=== PATIENT | male | born 1955 | race African-American/Black ===

== ENCOUNTER 2019-01-13 08:51 | Outpatient (CLI) | payer MEDICARE ==
[2019-01-13 09:21] LABS: #Eosinphils 0.2 thou/uL (0.0-0.7); #Lymphocytes 2.3 thou/uL (1.20-3.40); #Monocytes 0.9 thou/uL (0.11-0.59); %Basophils 0.6 % (0.0-1.0); %Eosinophils 3.7 % (0.0-10.0); %Lymphocytes 35.4 % (21.0-51.0); %Neutrophils 46.4 % (42.0-75.0); Mean Corpuscular HGB CONC 32.1 g/dL (32.0-36.0); Mean Corpuscular Hemoglobin 32.6 pg (27.0-31.0); Mean Platelet Volume 6.3 fL (7.4-10.4); Platelet Count 260 thou/uL (130-400); RBC Distribution Width 12.4 % (11.5-14.5); Red Blood Cell (RBC) Count 4.61 mill/uL (4.70-6.10); White Blood Cell (WBC) Count 6.5 thou/uL (4.8-10.8)
[2019-01-13 09:42] LABS: Anion Gap 12 mmol/L (10-20); BUN (Urea Nitrogen) 13 mg/dL (8.4-25.7); Calc. Creatinine Clearance 0 mL/min (70-130); Calcium 9.7 mg/dL (7.8-10.44); Carbon Dioxide 26 mmol/L (23-31); Chloride 101 mmol/L (98-107); Estimated GFR-MDRD 78; Glucose 84 mg/dL (80-115); Potassium 3.1 mmol/L (3.5-5.1); Sodium 136 mmol/L (136-145)
--- NOTE | 2019-01-13 17:17 | EKG ---
Test Reason : Blood Pressure : / mmHG Vent. Rate : 053 BPM Atrial Rate : 053 BPM P-R Int : 210 ms QRS Dur : 106 ms QT Int : 448 ms P-R-T Axes : 072 -13 029 degrees QTc Int : 420 ms Sinus bradycardia with 1st degree A-V block Repolarization variant When compared with ECG of 05-DEC-2012 08:57, Nonspecific T wave abnormality now evident in Lateral leads Confirmed by DR. Marisabel PATIÑO ([id number]) on 01/13/2019 5:16:57 PM Referred By: SANDRO Confirmed By:DR. Marisabel PATIÑO
== END 2019-01-13 08:52 | disposition home or self-care (01) ==
LOC: LABBT 08:51
PROVIDERS: ATTEND Specialist
DX: Z01.818 Encounter for other preprocedural examination (principal); K40.90 Unilateral inguinal hernia, without obstruction or gangrene, not specified as recurrent
CPT/HCPCS: 80048; 85025; 93005; 93010

== ENCOUNTER 2019-01-17 09:17 | Day surgery (SDC) | payer MEDICARE ==
[2019-01-13 08:43] VITALS: BMI 27.2
[2019-01-17] MEDS ORDERED: ceFAZolin Sodium (SDC) 2 GM/100 ML BAG ONE ×2 (10:02→10:13)
[2019-01-17] MEDS ORDERED: Ketorolac Tromethamine 30 MG/ML VIAL ONE (10:13)
[2019-01-17] MEDS ORDERED: Bupivacaine/Epinephrine 0.25% 30 ML VIAL ONE (12:24)
[2019-01-17] MEDS ORDERED: Fentanyl 100 MCG/2 ML VIAL ONE ×4 (13:44→17:24)
[2019-01-17] MEDS ORDERED: Ondansetron PF 4 MG/2 ML Vial ONE (16:55)
[2019-01-17] MEDS ORDERED: HYDROmorphone 2 MG/ML VIAL ONE (17:06)
[2019-01-17] MEDS ORDERED: HYDROcodone/Acetaminophen 5/325 mg Tablet ONE (18:08)
--- NOTE | 2019-01-18 02:03 | OP ---
DATE OF PROCEDURE: 01/17/2019 PREOPERATIVE DIAGNOSIS: Left inguinal hernia. POSTOPERATIVE DIAGNOSIS: Left inguinal hernia with additional finding of right inguinal hernia (hernias on both sides were indirect). PROCEDURE PERFORMED: Robotic repair of bilateral inguinal hernias with separate 3D max mesh patches. INDICATIONS: The patient is a 63-year-old black male. He presented with an easily visible and palpable left inguinal hernia. He is taken to the operative room at this time for repair. DESCRIPTION OF OPERATION: Informed consent was obtained and patient was taken to the operating room, where general endotracheal anesthesia was obtained with the patient in supine position. Marroquin catheter was placed, abdomen was prepped with ChloraPrep and draped in sterile fashion. Local anesthetic was infiltrated and supraumbilical 11 mm incision was created through which a Veress needle was passed. The peritoneal cavity and pneumoperitoneum established using carbon dioxide to pressure of 15 mmHg. An 11 mm trocar port was passed through the same incision. Laparoscopic camera was passed through this port. Under direct vision, I placed two additional 8 mm robotic ports at the supraumbilical level, one on either side of midline. The robot was then docked to the 3 ports and the camera and operation was continued from the robotic console. Attention was turned to the bilateral inguinal areas. The patient had a fairly large easily visible indirect left inguinal hernia. On the right side, he had a smaller but obvious right inguinal hernia. I decided to proceed with a bilateral inguinal hernia repair. Attention was turned first to the right side. A transverse peritoneal incision was created several centimeters superior to the hernia defect. Preperitoneal dissection was carried inferiorly. The peritoneum was widely cleared from the pubic tubercle medially, dissected off the cord structures in the center, and the iliopubic tract was dissected laterally. I then obtained a large 3DMax mesh patch and placed this in the preperitoneal space. It was secured in place with 2 interrupted sutures of 2-0 Vicryl, one to the pubic tubercle and one to the anterior abdominal wall lateral to the epigastric vessels. The peritoneum was then closed over the mesh patch with a running suture of 3-0 Stratafix. Attention was turned to the left side. A mirror-image operation was performed. The dissection of the hernia sac was more involved as this was a substantially larger hernia. As mentioned, both hernias were indirect. The same size of mesh was used except on the left side. It was tacked in similar fashion and the wound was closed internally similarly. Blood loss was negligible on either side. The fascia at the supraumbilical port site was closed with 0 Vicryl suture using a GraNee needle. All ports and instruments were removed under direct vision. Pneumoperitoneum was carefully evacuated. A 0.25% Marcaine with epinephrine was infiltrated into each port site. Skin edges approximated with 4-0 Monocryl subcuticular suture. Dermabond was placed externally. There were no complications. The patient tolerated the procedure well and was taken to the recovery room in stable condition. Job ID: [id number]
== END 2019-01-17 18:40 | disposition home or self-care (01) ==
LOC: SDC 09:17
PROVIDERS: ATTEND Specialist
PROC: 0YU64JZ Supplement Left Inguinal Region with Synthetic Substitute, Percutaneous Endoscopic Approach (ICD-10-PCS; principal; 2019-01-17)
DX: K40.20 Bilateral inguinal hernia, without obstruction or gangrene, not specified as recurrent (principal); I10 Essential (primary) hypertension; H40.9 Unspecified glaucoma; F17.200 Nicotine dependence, unspecified, uncomplicated; Z79.899 Other long term (current) drug therapy; Z88.5 Allergy status to narcotic agent; Z88.8 Allergy status to other drugs, medicaments and biological substances
CPT/HCPCS: C1781; J0131; J0690; J1170; J1885; J2405; J3010

== ENCOUNTER 2020-08-02 16:00 | Inpatient (IN) | payer MEDICARE ==
[2020-08-07] MEDS ORDERED: cefOXitin Sodium/Dextrose 2 GM/50 ML BAG ONE (06:15)
[2020-08-07] MEDS ORDERED: XYLOCAINE 2%-EPI 1:100,000 20 ML VIAL ONE (06:38)
[2020-08-07] MEDS ORDERED: Bupivacaine 0.25% HCL 30 ML VIAL ONE (06:38)
[2020-08-07] MEDS ORDERED: Fentanyl 100 MCG/2 ML VIAL ONE ×2 (07:29→10:04)
[2020-08-07] MEDS ORDERED: Dexamethasone 20 MG/5 ML VIAL ONE (08:55)
[2020-08-07] MEDS ORDERED: Bupivacaine HCl 0.5%/Epinephrine 1:200,000/PF 30 ml Vial ONE (08:55)
[2020-08-07] MEDS ORDERED: Rocuronium Bromide 10 MG/ML (10ML VIAL) ONE (08:55)
[2020-08-07] MEDS ORDERED: Glycopyrrolate 0.2 MG/ML 5 ML SYRINGE ONE (08:55)
[2020-08-07] MEDS ORDERED: Ondansetron PF 4 MG/2 ML Vial ONE ×2 (08:55→09:54)
[2020-08-07] MEDS ORDERED: PROPOFOL 200 MG/20 ML VIAL ONE (08:55)
[2020-08-07] MEDS ORDERED: Ketorolac Tromethamine 30 MG/ML VIAL ONE (08:55)
[2020-08-07] MEDS ORDERED: Promethazine HCl 25 MG/ML VIAL IM PRN (09:42)
[2020-08-07] MEDS ORDERED: Promethazine HCl 25 MG/ML VIAL ONE (09:54)
--- NOTE | 2020-08-07 10:26 | OP ---
DATE OF PROCEDURE: 08/07/2020 PREOPERATIVE DIAGNOSIS: Cecal mass. PROCEDURE PERFORMED: Laparoscopic hand-assisted right hemicolectomy. INDICATIONS: A 65-year-old male who on recent colonoscopy was found to have a large villous mass in the cecum, which was too large to be removed. FINDINGS: A 4 cm soft villous mass of the cecum. DESCRIPTION OF PROCEDURE: After informed consent was obtained, the patient was taken to the operating room and given general endotracheal anesthesia. He was placed in supine position. Abdomen was prepped and draped in usual fashion. He had been given TAP blocks in the preop area. A 5-mm incision was performed in the left lower quadrant. Veress needle was inserted. Drop test performed. Pneumoperitoneum was created to a volume of 2 L of carbon dioxide. Utilizing a bladeless 5-mm trocar and 0-degree laparoscopic, direct visual entry into the abdominal cavity was performed. Pneumoperitoneum was created to a pressure of 15 mmHg. Then, two 5 mm ports were placed in right lower quadrant and left upper quadrant. The cecum was found. The appendix and white line of Toldt were incised with the LigaSure up to the hepatic flexure. I then was able to mobilize the terminal ileum as well as the cecum and hepatic flexure. The mass was not visible. There was no tattooing seen, so I wound up putting a hand assisted port in and I could feel the mass so to be sure that we were getting it all out. Then, the transverse colon was mobilized partially and the specimen was brought out through the hand assist port. The terminal ileum was divided utilizing a MORRIS. The transverse colon was divided proximal to the middle colic vessels with a MORRIS, and the mesentery was divided utilizing the ligature, but the right colic vessels were ligated with a 2-0 Vicryl stick tie. The specimen was set aside and a pro peristaltic [id number] functional and end-to-end anastomosis was performed. Distal to the staple line on the transverse colon, a colotomy was created with electrocautery. Another wound was made in the ileum approximately 10 cm from the staple line. Then, the MORRIS 75 one limb in each limb of bowel was inserted, fired, and the common enterotomy was closed with a running 3-0 V-Loc PDS. Anastomosis was checked that was patent. Hemostasis was assured. The bowel replaced intra-abdominally. Then, laparoscope once again inserted after pneumoperitoneum was reestablished. There was no evidence of bleeding. The abdomen was irrigated. Irrigation fluid removed. Trocars and retractors were removed. The fat midline fascia was closed with interrupted [id number] of #1 Prolene. Subcu was irrigated, hemostasis was assured. Subcu was reapproximated with interrupted 3-0 Vicryl. Skin was closed with a running subcuticular 4-0 Rapide. The other small ports were closed with interrupted 4-0 Rapide. Dermabond was applied to the small incisions, Steri-Strips to the larger incision. Bandage was applied to the larger incision. The patient tolerated the procedure well. Prior to closure, I did open the specimen and confirmed that the specimen did contain the polyp, which is about a 4 cm villous polyp near the ileocecal valve. Job ID: [id number]
[2020-08-07] MEDS ORDERED: hydrALAZINE 20 MG/ML VIAL ONE (10:37)
[2020-08-07 11:24] VITALS: BMI 26.9
[2020-08-07] MEDS: Morphine 4 MG/ML VIAL SLOW IVP PRN ×4 (12:45→22:47)
[2020-08-07] MEDS: cefOXitin Sodium/Dextrose,Iso 2 GM in Premix Bag 1 BAG IVPB SCH ×2 (14:17→22:43)
[2020-08-07] MEDS: Sodium Chloride 0.9% 1,000 ML IV SCH ×2 (14:18→20:12)
[2020-08-07] MEDS: Ondansetron PF 4 MG/2 ML Vial IVP PRN (15:45)
[2020-08-07] MEDS: Famotidine/PF 20 mg/2ml Vial SLOW IVP SCH (20:06)
[2020-08-07] MEDS: Famotidine 20 MG TAB PO SCH (20:07)
[2020-08-08] MEDS: Morphine 4 MG/ML VIAL SLOW IVP PRN ×6 (02:54→17:41)
[2020-08-08 05:51] LABS: #Lymphocytes 1.9 thou/uL (1.20-3.40); #Monocytes 0.8 thou/uL (0.11-0.59); #Neutrophils 5.6 thou/uL (1.40-6.50); %Basophils 0.2 % (0.0-1.0); %Eosinophils 0.3 % (0.0-10.0); %Lymphocytes 23.2 % (21.0-51.0); %Monocytes 9.7 % (0.0-10.0); %Neutrophils 66.6 % (42.0-75.0); Hemoglobin 13.3 g/dL (14.0-18.0); Mean Corpuscular HGB CONC 34.4 g/dL (32.0-36.0); Mean Platelet Volume 6.6 fL (7.4-10.4); Platelet Count 192 thou/uL (130-400); RBC Distribution Width 12.7 % (11.5-14.5); Red Blood Cell (RBC) Count 3.81 mill/uL (4.70-6.10); White Blood Cell (WBC) Count 8.4 thou/uL (4.8-10.8)
[2020-08-08] MEDS: Sodium Chloride 0.9% 1,000 ML IV SCH ×4 (05:58→20:04)
[2020-08-08 06:00] LABS: Anion Gap 13 mmol/L (10-20); BUN (Urea Nitrogen) 9 mg/dL (8.4-25.7); Calc. Creatinine Clearance 108 mL/min (70-130); Calcium 7.9 mg/dL (7.8-10.44); Carbon Dioxide 23 mmol/L (23-31); Chloride 106 mmol/L (98-107); Glucose 97 mg/dL (80-115); Potassium 3.6 mmol/L (3.5-5.1); Sodium 138 mmol/L (136-145)
[2020-08-08] MEDS: Famotidine 20 MG TAB PO SCH ×2 (08:16→20:04)
[2020-08-08] MEDS: Famotidine/PF 20 mg/2ml Vial SLOW IVP SCH ×2 (08:27→20:08)
[2020-08-08] MEDS ORDERED: FLU VACC QS2020-21(6MOS UP)/PF 60 MCG/0.5 ML SYRINGE IM ONE (09:00)
--- NOTE | 2020-08-08 10:20 | PRG ---
DATE OF SERVICE: 08/08/2020 SUBJECTIVE: The patient is feeling pretty good. Pain is controlled. Very rare nausea. No vomiting. Has not passed any flatus yet. OBJECTIVE: VITAL SIGNS: Temperature 98.3, pulse 64, blood pressure 165/95. GENERAL: He is awake and alert. ABDOMEN: Little bit distended. Rare bowel sounds. Wounds look good. He is putting out good urine. LABORATORY DATA: His white count is 8.4, H and H 13 and 38, platelet count 192. Electrolytes are fine. ASSESSMENT: Doing well. PLAN: Ambulate. We will start advancing diet when he is less distended or passing gases. Job ID: [id number]
[2020-08-08] MEDS: Enoxaparin Sodium 40 MG/0.4 ML SYRINGE SC SCH (10:40)
[2020-08-08] MEDS ORDERED: Ketorolac Tromethamine 30 MG/ML VIAL ONE (17:36)
[2020-08-08] MEDS: hydrALAZINE 20 MG/ML VIAL SLOW IVP PRN (17:45)
[2020-08-09] MEDS: Sodium Chloride 0.9% 1,000 ML IV SCH ×4 (00:19→22:01)
[2020-08-09] MEDS: Ketorolac Tromethamine 30 MG/ML VIAL IVP PRN ×3 (00:19→17:04)
[2020-08-09] MEDS: Ondansetron PF 4 MG/2 ML Vial IVP PRN (06:38)
[2020-08-09] MEDS: Morphine 2 MG/ML VIAL SLOW IVP PRN ×5 (06:38→22:01)
[2020-08-09] MEDS: Famotidine 20 MG TAB PO SCH ×2 (08:34→20:00)
[2020-08-09] MEDS: Enoxaparin Sodium 40 MG/0.4 ML SYRINGE SC SCH (08:34)
[2020-08-09] MEDS: Famotidine/PF 20 mg/2ml Vial SLOW IVP SCH ×2 (08:57→20:01)
--- NOTE | 2020-08-09 09:34 | PRG ---
DATE OF SERVICE: 08/09/2020 SUBJECTIVE: The patient reports he is very hungry. He wants something to eat. He still has not passed any gas yet. His abdomen feels less distended. The pain is well controlled. No nausea or vomiting. OBJECTIVE: VITAL SIGNS: His temperature is 98.4, pulse 69, blood pressure 164/81. GENERAL: He looks good, comfortable. LUNGS: Clear. : He is voiding on his own. ABDOMEN: Soft, a little bit distended. The incisions are healing well without discharge or erythema. ASSESSMENT: Doing well. PLAN: Clear liquid diet. Ambulate. Job ID: [id number]
[2020-08-09] MEDS: Morphine 4 MG/ML VIAL SLOW IVP PRN (18:12)
[2020-08-10] MEDS: Sodium Chloride 0.9% 1,000 ML IV SCH ×3 (00:56→22:05)
[2020-08-10] MEDS: Ketorolac Tromethamine 30 MG/ML VIAL IVP PRN ×3 (00:57→16:47)
[2020-08-10] MEDS: Morphine 2 MG/ML VIAL SLOW IVP PRN ×4 (05:12→20:37)
[2020-08-10] MEDS: Famotidine 20 MG TAB PO SCH ×2 (08:35→20:32)
[2020-08-10] MEDS: Enoxaparin Sodium 40 MG/0.4 ML SYRINGE SC SCH (08:35)
[2020-08-10] MEDS: Famotidine/PF 20 mg/2ml Vial SLOW IVP SCH ×2 (08:39→20:33)
[2020-08-10] MEDS: Morphine 4 MG/ML VIAL SLOW IVP PRN ×2 (11:54→14:34)
[2020-08-11] MEDS: Ketorolac Tromethamine 30 MG/ML VIAL IVP PRN ×3 (00:37→17:08)
[2020-08-11] MEDS: Morphine 2 MG/ML VIAL SLOW IVP PRN ×2 (06:00→12:23)
[2020-08-11] MEDS: Sodium Chloride 0.9% 1,000 ML IV SCH ×3 (06:01→21:04)
[2020-08-11] MEDS: Famotidine/PF 20 mg/2ml Vial SLOW IVP SCH ×2 (09:03→20:34)
[2020-08-11] MEDS: Famotidine 20 MG TAB PO SCH ×2 (09:04→20:34)
[2020-08-11] MEDS: Enoxaparin Sodium 40 MG/0.4 ML SYRINGE SC SCH (09:09)
--- NOTE | 2020-08-11 10:45 | PRG ---
DATE OF SERVICE: 08/11/2020 SUBJECTIVE: The patient has had a couple of bowel movements, some blood-tinged. He is having occasional right-sided abdominal pain. No nausea or vomiting. OBJECTIVE: VITAL SIGNS: Temperature is 98.6, pulse 68, and blood pressure 177/94. GENERAL: He is awake, alert. ABDOMEN: . Incision looks good. There is no evidence of infection. LABORATORY DATA: His white count is 8.4, H and H 13 and 38, and platelet count 192. ASSESSMENT: Doing well. PLAN: Ambulate. Discharge soon. Job ID: [id number]
[2020-08-11] MEDS: hydrALAZINE 20 MG/ML VIAL SLOW IVP PRN (15:37)
[2020-08-11] MEDS ORDERED: Hydrochlorothiazide 25 MG TAB PO SCH (17:00)
[2020-08-11] MEDS: Morphine 4 MG/ML VIAL SLOW IVP PRN ×2 (18:55→21:04)
[2020-08-12] MEDS: Ketorolac Tromethamine 30 MG/ML VIAL IVP PRN ×3 (01:25→17:42)
[2020-08-12] MEDS ORDERED: Morphine 4 MG/ML VIAL ONE ×2 (06:29→08:58)
[2020-08-12] MEDS ORDERED: Famotidine 20 MG TAB ONE (08:57)
[2020-08-12] MEDS ORDERED: Enoxaparin Sodium 40 MG/0.4 ML SYRINGE ONE (08:57)
[2020-08-12] MEDS: Famotidine 20 MG TAB PO SCH ×2 (09:00→20:10)
[2020-08-12] MEDS ORDERED: Hydrochlorothiazide 25 MG TAB ONE (09:00)
[2020-08-12] MEDS: Hydrochlorothiazide 25 MG TAB PO SCH (09:00)
[2020-08-12] MEDS: Enoxaparin Sodium 40 MG/0.4 ML SYRINGE SC SCH (09:00)
[2020-08-12] MEDS ORDERED: Ketorolac Tromethamine 30 MG/ML VIAL ONE (09:04)
[2020-08-12] MEDS ORDERED: Morphine 2 MG/ML VIAL ONE (11:46)
[2020-08-12] MEDS: Morphine 2 MG/ML VIAL SLOW IVP PRN ×3 (11:50→20:10)
[2020-08-12] MEDS: Famotidine/PF 20 mg/2ml Vial SLOW IVP SCH ×2 (14:04→20:11)
--- NOTE | 2020-08-12 14:12 | PRG ---
DATE OF SERVICE: 08/12/2020 SUBJECTIVE: The patient reports he has been a little bloated today, is passing gas, minimal nausea, no vomiting. OBJECTIVE: GENERAL: On exam, he looks good. He is up ambulating. ABDOMEN: Somewhat distended. Incisions healing well. ASSESSMENT: Ileus. PLAN: Continue ambulation. We will keep him on liquids. Job ID: [id number]
[2020-08-12] MEDS ORDERED: Bisacodyl 10 MG SUPP ONE (14:34)
[2020-08-12] MEDS: Sodium Chloride 0.9% 1,000 ML IV SCH ×3 (15:50→22:44)
[2020-08-12] MEDS ORDERED: Bisacodyl 10 MG SUPP PR SCH (16:30)
[2020-08-13] MEDS: Morphine 4 MG/ML VIAL SLOW IVP PRN ×4 (00:17→20:46)
[2020-08-13] MEDS: Ketorolac Tromethamine 30 MG/ML VIAL IVP PRN ×2 (03:00→11:12)
[2020-08-13] MEDS: Famotidine/PF 20 mg/2ml Vial SLOW IVP SCH ×2 (08:24→20:47)
[2020-08-13] MEDS: Hydrochlorothiazide 25 MG TAB PO SCH (08:25)
[2020-08-13] MEDS: Famotidine 20 MG TAB PO SCH ×2 (08:25→20:47)
[2020-08-13] MEDS: Sodium Chloride 0.9% 1,000 ML IV SCH ×2 (08:30→14:12)
[2020-08-13] MEDS: Enoxaparin Sodium 40 MG/0.4 ML SYRINGE SC SCH (12:27)
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
[2020-08-13] MEDS: Morphine 2 MG/ML VIAL SLOW IVP PRN ×2 (17:50→22:20)
[2020-08-14] MEDS: Sodium Chloride 0.9% 1,000 ML IV SCH ×3 (00:52→17:15)
[2020-08-14] MEDS: Morphine 4 MG/ML VIAL SLOW IVP PRN ×3 (00:53→20:34)
[2020-08-14] MEDS: Morphine 2 MG/ML VIAL SLOW IVP PRN ×4 (05:11→17:14)
[2020-08-14] MEDS: Famotidine 20 MG TAB PO SCH ×2 (09:18→20:35)
[2020-08-14] MEDS: Enoxaparin Sodium 40 MG/0.4 ML SYRINGE SC SCH (09:18)
[2020-08-14] MEDS: Famotidine/PF 20 mg/2ml Vial SLOW IVP SCH ×2 (09:18→22:41)
[2020-08-14] MEDS: Hydrochlorothiazide 25 MG TAB PO SCH (09:18)
[2020-08-15] MEDS: Sodium Chloride 0.9% 1,000 ML IV SCH ×3 (00:37→14:52)
[2020-08-15] MEDS: Morphine 4 MG/ML VIAL SLOW IVP PRN ×9 (00:42→23:58)
[2020-08-15] MEDS: Famotidine 20 MG TAB PO SCH ×2 (08:00→21:03)
[2020-08-15] MEDS: Famotidine/PF 20 mg/2ml Vial SLOW IVP SCH ×2 (08:01→21:03)
[2020-08-15] MEDS: Hydrochlorothiazide 25 MG TAB PO SCH (08:01)
[2020-08-15] MEDS: Enoxaparin Sodium 40 MG/0.4 ML SYRINGE SC SCH (11:00)
[2020-08-16] MEDS: Sodium Chloride 0.9% 1,000 ML IV SCH ×2 (02:05→11:47)
[2020-08-16] MEDS: Morphine 4 MG/ML VIAL SLOW IVP PRN ×4 (03:30→11:45)
[2020-08-16] MEDS: Famotidine 20 MG TAB PO SCH (09:08)
[2020-08-16] MEDS: Hydrochlorothiazide 25 MG TAB PO SCH (09:08)
[2020-08-16] MEDS: Famotidine/PF 20 mg/2ml Vial SLOW IVP SCH (09:09)
[2020-08-16 11:29] VITALS: BP 124/77; TEMP 99.3
[2020-08-16] MEDS: Enoxaparin Sodium 40 MG/0.4 ML SYRINGE SC SCH (11:45)
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
== END 2020-08-16 14:01 | disposition home or self-care (01) | DRG 330 ==
LOC: SURG A 08-07 05:50 → SURG B 08-07 11:47 → EDSTATUS 08-07 16:00
PROVIDERS: ADMIT Surgery; ATTEND Surgery
PROC: 0DTF0ZZ Resection of Right Large Intestine, Open Approach (ICD-10-PCS; principal; 2020-08-07)
DX: K63.5 Polyp of colon (principal); K56.7 Ileus, unspecified; Z88.8 Allergy status to other drugs, medicaments and biological substances
CPT/HCPCS: 36415; 36416; 80048; 85025; 88309; J0360; J0694; J1100; J1650; J1885; J2270; J2405; J2550; J2704; J3010; S0020; S0028

== ENCOUNTER 2022-07-28 14:23 | Inpatient (IN) | payer MEDICARE ==
[2022-07-28 16:47] LABS: #Eosinphils 0.2 thou/uL (0.0-0.7); #Lymphocytes 1.8 thou/uL (1.20-3.40); #Monocytes 0.4 thou/uL (0.11-0.59); #Neutrophils 3.1 thou/uL (1.40-6.50); %Basophils 0.8 % (0.0-1.0); %Eosinophils 3.3 % (0.0-10.0); %Lymphocytes 32.3 % (21.0-51.0); %Monocytes 7.4 % (0.0-10.0); %Neutrophils 56.2 % (42.0-75.0); Hemoglobin 13.9 g/dL (14.0-18.0); Mean Corpuscular HGB CONC 34.1 g/dL (32.0-36.0); Mean Corpuscular Hemoglobin 32.5 pg (27.0-31.0); Mean Corpuscular Volume 95.3 fl (78.0-98.0); Mean Platelet Volume 6.6 fL (7.4-10.4); Platelet Count 267 10x3/uL (130-400); RBC Distribution Width 13.3 % (11.5-14.5); Red Blood Cell (RBC) Count 4.26 mill/uL (4.70-6.10); White Blood Cell (WBC) Count 5.5 10x3/uL (4.8-10.8)
[2022-07-28] MEDS ORDERED: Ondansetron PF 4 MG/2 ML Vial ONE (16:50)
[2022-07-28] MEDS ORDERED: Morphine 4 MG/ML VIAL ONE ×2 (16:50→18:14)
[2022-07-28 17:07] LABS: INR-International Normal Ratio 1.1; Prothrombin Time 14.7 sec (12.0-14.7)
[2022-07-28 17:09] LABS: ALT (SGPT) 21 U/L (8-55); AST (SGOT) 20 U/L (5-34); Alkaline Phosphatase 89 U/L (40-110); Anion Gap 16 mmol/L (10-20); BUN (Urea Nitrogen) 9 mg/dL (8.4-25.7); Bilirubin, Total 0.9 mg/dL (0.2-1.2); Calc. Creatinine Clearance 0 mL/min (70-130); Calcium 7.9 mg/dL (7.8-10.44); Carbon Dioxide 27 mmol/L (23-31); Chloride 99 mmol/L (98-107); Estimated GFR 75; Globulin 3.8 g/dL (2.4-3.5); Glucose 92 mg/dL (80-115); Protein, Total 7.8 g/dL (5.8-8.1); Sodium 140 mmol/L (136-145)
[2022-07-28 17:13] LABS: Potassium 2.4 mmol/L (3.5-5.1)
[2022-07-28] MEDS ORDERED: Potassium Chloride 20 MEQ TAB ONE ×2 (17:21→18:41)
[2022-07-28] MEDS ORDERED: Ondansetron PF 4 MG/2 ML Vial IVP PRN (18:57)
[2022-07-28] MEDS ORDERED: Ondansetron ODT 4 MG TAB PO PRN (18:57)
[2022-07-28] MEDS ORDERED: Acetaminophen 325 MG TAB PO PRN (18:57)
[2022-07-28] MEDS ORDERED: HYDROcodone/Acetaminophen 10/325 mg Tablet PO PRN (18:57)
[2022-07-28] MEDS ORDERED: Electrolyte Replacement Protocol 1 EACH FS SCH (19:00)
[2022-07-28] MEDS ORDERED: HYDROcodone/Acetaminophen 5/325 mg Tablet PO PRN (19:02)
[2022-07-28 19:42] LABS: Phosphorus 4.1 mg/dL (2.3-4.7)
[2022-07-28 19:49] LABS: Magnesium Less than 0.6 mg/dL (1.6-2.6)
[2022-07-28 19:55] VITALS: BMI 27.6
[2022-07-28 20:03] LABS: SARS-CoV-2 NAA Rapid Test Not Detected (NotDetected)
[2022-07-28] MEDS ORDERED: Magnesium 2 GM/50 ML(in water) 2 GM in Premix Bag 1 BAG IVPB SCH (20:15)
[2022-07-28] MEDS: Pantoprazole 40 MG VIAL IVP SCH (20:28)
[2022-07-28] MEDS: HYDROcodone/Acetaminophen 5/325 mg Tablet PO PRN (20:30)
[2022-07-28 22:50] LABS: Anion Gap 16 mmol/L (10-20); BUN (Urea Nitrogen) 7 mg/dL (8.4-25.7); Calc. Creatinine Clearance 100 mL/min (70-130); Calcium 7.5 mg/dL (7.8-10.44); Carbon Dioxide 25 mmol/L (23-31); Chloride 102 mmol/L (98-107); Estimated GFR 94; Glucose 112 mg/dL (80-115); Sodium 140 mmol/L (136-145)
[2022-07-28 22:58] LABS: Potassium 2.5 mmol/L (3.5-5.1)
[2022-07-29] MEDS: Potassium Chloride 20 MEQ TAB PO SCH ×2 (00:06→04:06)
[2022-07-29] MEDS: HYDROcodone/Acetaminophen 5/325 mg Tablet PO PRN ×7 (00:19→23:48)
[2022-07-29 02:39] LABS: Magnesium 0.7 mg/dL (1.6-2.6)
[2022-07-29] MEDS: Magnesium 2 GM/50 ML(in water) 2 GM in Premix Bag 1 BAG IVPB SCH ×2 (04:05→05:31)
[2022-07-29] MEDS: Pantoprazole 40 MG VIAL IVP SCH ×2 (08:15→20:03)
[2022-07-29] MEDS ORDERED: Hydrochlorothiazide 25 MG TAB PO SCH (09:00)
[2022-07-29 09:11] LABS: Anion Gap 13 mmol/L (10-20); BUN (Urea Nitrogen) 6 mg/dL (8.4-25.7); Calc. Creatinine Clearance 106 mL/min (70-130); Calcium 7.7 mg/dL (7.8-10.44); Carbon Dioxide 27 mmol/L (23-31); Chloride 102 mmol/L (98-107); Estimated GFR 96; Glucose 90 mg/dL (80-115); Magnesium 2.1 mg/dL (1.6-2.6); Sodium 139 mmol/L (136-145)
[2022-07-29 09:17] LABS: Potassium 2.6 mmol/L (3.5-5.1)
[2022-07-29] MEDS: Potassium Chloride 20 MEQ in Premix Bag 1 BAG IVPB SCH ×2 (09:25→12:39)
[2022-07-29] MEDS ORDERED: Potassium Chloride 20 MEQ TAB PO SCH (10:45)
[2022-07-29] MEDS ORDERED: Magnesium Sulfate In Water 4 GM in Premix Bag 1 BAG IVPB SCH (12:00)
[2022-07-29 12:14] LABS: Magnesium 1.7 mg/dL (1.6-2.6)
[2022-07-29 12:20] LABS: Anion Gap 15 mmol/L (10-20); BUN (Urea Nitrogen) 5 mg/dL (8.4-25.7); Calc. Creatinine Clearance 100 mL/min (70-130); Calcium 7.7 mg/dL (7.8-10.44); Carbon Dioxide 26 mmol/L (23-31); Chloride 101 mmol/L (98-107); Estimated GFR 94; Glucose 106 mg/dL (80-115); Potassium 2.7 mmol/L (3.5-5.1); Sodium 139 mmol/L (136-145)
[2022-07-29] MEDS: NS 0.9% w/ 20 MEQ KCL 1,000 ML/1,000 ML BAG IV SCH ×2 (12:31→21:34)
[2022-07-29 15:11] LABS: Anion Gap 15 mmol/L (10-20); BUN (Urea Nitrogen) 6 mg/dL (8.4-25.7); Calc. Creatinine Clearance 103 mL/min (70-130); Calcium 7.7 mg/dL (7.8-10.44); Carbon Dioxide 26 mmol/L (23-31); Chloride 102 mmol/L (98-107); Estimated GFR 95; Glucose 103 mg/dL (80-115); Potassium 2.9 mmol/L (3.5-5.1); Sodium 140 mmol/L (136-145)
[2022-07-29] MEDS: Cholestyramine/Aspartame 4 gm Packet PO SCH ×2 (21:34→22:26)
[2022-07-29 22:13] LABS: Anion Gap 13 mmol/L (10-20); BUN (Urea Nitrogen) 5 mg/dL (8.4-25.7); Calc. Creatinine Clearance 103 mL/min (70-130); Calcium 7.5 mg/dL (7.8-10.44); Carbon Dioxide 24 mmol/L (23-31); Chloride 103 mmol/L (98-107); Estimated GFR 95; Glucose 101 mg/dL (80-115); Potassium 3.1 mmol/L (3.5-5.1); Sodium 137 mmol/L (136-145)
[2022-07-30] MEDS: HYDROcodone/Acetaminophen 5/325 mg Tablet PO PRN ×5 (04:33→21:23)
[2022-07-30] MEDS ORDERED: Potassium Chloride 20 MEQ TAB PO SCH ×2 (08:00→15:30)
[2022-07-30 08:07] LABS: #Eosinphils 0.1 thou/uL (0.0-0.7); #Lymphocytes 1.6 thou/uL (1.20-3.40); #Monocytes 0.5 thou/uL (0.11-0.59); #Neutrophils 3.7 thou/uL (1.40-6.50); %Basophils 0.2 % (0.0-1.0); %Eosinophils 2.1 % (0.0-10.0); %Lymphocytes 26.9 % (21.0-51.0); %Monocytes 8.4 % (0.0-10.0); %Neutrophils 62.5 % (42.0-75.0); Hemoglobin 12.9 g/dL (14.0-18.0); Mean Corpuscular HGB CONC 34.1 g/dL (32.0-36.0); Mean Corpuscular Volume 96.7 fl (78.0-98.0); Mean Platelet Volume 6.5 fL (7.4-10.4); Platelet Count 292 10x3/uL (130-400); RBC Distribution Width 13.2 % (11.5-14.5); Red Blood Cell (RBC) Count 3.92 mill/uL (4.70-6.10); White Blood Cell (WBC) Count 5.9 10x3/uL (4.8-10.8)
[2022-07-30 08:32] LABS: Anion Gap 15 mmol/L (10-20); BUN (Urea Nitrogen) 4 mg/dL (8.4-25.7); Calc. Creatinine Clearance 111 mL/min (70-130); Calcium 7.9 mg/dL (7.8-10.44); Carbon Dioxide 24 mmol/L (23-31); Chloride 101 mmol/L (98-107); Estimated GFR 97; Glucose 93 mg/dL (80-115); Magnesium 1.2 mg/dL (1.6-2.6); Potassium 2.7 mmol/L (3.5-5.1); Sodium 137 mmol/L (136-145)
[2022-07-30] MEDS: Pantoprazole 40 MG VIAL IVP SCH (08:38)
[2022-07-30] MEDS: NS 0.9% w/ 20 MEQ KCL 1,000 ML/1,000 ML BAG IV SCH ×2 (08:39→20:06)
[2022-07-30] MEDS ORDERED: Magnesium Sulfate In Water 4 GM in Premix Bag 1 BAG IVPB SCH (10:00)
[2022-07-30] MEDS: Cholestyramine/Aspartame 4 gm Packet PO SCH ×2 (10:24→21:23)
[2022-07-30] MEDS: Potassium Chloride 10 MEQ in Premix Bag 1 BAG IVPB SCH ×2 (16:36→21:21)
[2022-07-30 18:39] LABS: Anion Gap 14 mmol/L (10-20); BUN (Urea Nitrogen) 5 mg/dL (8.4-25.7); Calc. Creatinine Clearance 106 mL/min (70-130); Calcium 8.6 mg/dL (7.8-10.44); Carbon Dioxide 25 mmol/L (23-31); Chloride 102 mmol/L (98-107); Estimated GFR 96; Glucose 95 mg/dL (80-115); Magnesium 2.2 mg/dL (1.6-2.6); Phosphorus 1.9 mg/dL (2.3-4.7); Potassium 3.4 mmol/L (3.5-5.1); Sodium 138 mmol/L (136-145)
[2022-07-30] MEDS: PHOS-NAK 1 PKT PACK PO SCH (19:47)
[2022-07-30] MEDS: Famotidine/PF 20 mg/2ml Vial SLOW IVP SCH (20:06)
[2022-07-31] MEDS: PHOS-NAK 1 PKT PACK PO SCH (00:43)
[2022-07-31] MEDS: Potassium Chloride 10 MEQ in Premix Bag 1 BAG IVPB SCH (00:45)
[2022-07-31] MEDS: HYDROcodone/Acetaminophen 5/325 mg Tablet PO PRN ×4 (01:14→13:48)
[2022-07-31] MEDS: NS 0.9% w/ 20 MEQ KCL 1,000 ML/1,000 ML BAG IV SCH ×2 (03:31→09:25)
[2022-07-31 07:35] LABS: Anion Gap 12 mmol/L (10-20); BUN (Urea Nitrogen) 4 mg/dL (8.4-25.7); Calc. Creatinine Clearance 118 mL/min (70-130); Calcium 8.3 mg/dL (7.8-10.44); Carbon Dioxide 24 mmol/L (23-31); Chloride 104 mmol/L (98-107); Estimated GFR 99; Glucose 94 mg/dL (80-115); Potassium 3.4 mmol/L (3.5-5.1); Sodium 137 mmol/L (136-145)
[2022-07-31] MEDS ORDERED: Potassium Chloride 20 MEQ TAB PO SCH (08:15)
[2022-07-31] MEDS: Cholestyramine/Aspartame 4 gm Packet PO SCH (09:23)
[2022-07-31] MEDS: Famotidine/PF 20 mg/2ml Vial SLOW IVP SCH (09:23)
[2022-07-31 10:07] LABS: #Eosinphils 0.1 thou/uL (0.0-0.7); #Lymphocytes 1.7 thou/uL (1.20-3.40); #Monocytes 0.5 thou/uL (0.11-0.59); #Neutrophils 2.9 thou/uL (1.40-6.50); %Basophils 0.6 % (0.0-1.0); %Eosinophils 2.6 % (0.0-10.0); %Lymphocytes 32.1 % (21.0-51.0); %Monocytes 9.1 % (0.0-10.0); %Neutrophils 55.7 % (42.0-75.0); Hemoglobin 12.9 g/dL (14.0-18.0); Mean Corpuscular HGB CONC 33.7 g/dL (32.0-36.0); Mean Corpuscular Hemoglobin 32.8 pg (27.0-31.0); Mean Corpuscular Volume 97.4 fl (78.0-98.0); Mean Platelet Volume 6.3 fL (7.4-10.4); Platelet Count 285 10x3/uL (130-400); RBC Distribution Width 13.3 % (11.5-14.5); Red Blood Cell (RBC) Count 3.92 mill/uL (4.70-6.10); White Blood Cell (WBC) Count 5.1 10x3/uL (4.8-10.8)
[2022-07-31 15:43] VITALS: BP 130/75; TEMP 98.1
== END 2022-07-31 15:44 | disposition home or self-care (01) | DRG 395 ==
LOC: ERS 14:23 → T4-B 18:52 → INTOOBSV 18:52 → OBSVTOIN 07-29 12:23
PROVIDERS: ADMIT Hospitalist; ATTEND Hospitalist
DX: K94.19 Other complications of enterostomy (principal); E87.6 Hypokalemia; Z20.822 Contact with and (suspected) exposure to COVID-19; E83.42 Hypomagnesemia; Y83.3 Surgical operation with formation of external stoma as the cause of abnormal reaction of the patient, or of later complication, without mention of misadventure at the time of the procedure; I10 Essential (primary) hypertension; Z88.8 Allergy status to other drugs, medicaments and biological substances; Z86.010 Personal history of colon polyps; Z90.49 Acquired absence of other specified parts of digestive tract; Z79.899 Other long term (current) drug therapy
CPT/HCPCS: 36415; 80048; 80053; 83735; 84100; 84132; 85025; 85610; 85730; 96375; 96376; 97139; C9113; G0378; J2270; J2405; J3475; J3480; S0028; U0002

== ENCOUNTER 2022-08-03 15:15 | Inpatient (IN) | payer MEDICARE ==
[2022-08-04 12:14] VITALS: BMI 26.8
[2022-08-06] MEDS ORDERED: fentaNYL PF 100 MCG/2 ML SYRINGE ONE (06:44)
[2022-08-06] MEDS ORDERED: Bupivacaine/Epinephrine 0.25% 30 ML VIAL ONE (06:53)
[2022-08-06] MEDS ORDERED: Midazolam HCl 2 mg/2 ml Vial ONE (07:23)
[2022-08-06] MEDS ORDERED: Glycopyrrolate 0.2 MG/ML 5 ML SYRINGE ONE (07:35)
[2022-08-06] MEDS ORDERED: Dexamethasone 20 MG/5 ML VIAL ONE (07:35)
[2022-08-06] MEDS ORDERED: Rocuronium Bromide 10 MG/ML (10ML VIAL) ONE (07:35)
[2022-08-06] MEDS ORDERED: Lidocaine 1% PF 5 ML VIAL ONE (07:35)
[2022-08-06] MEDS ORDERED: PROPOFOL 200 MG/20 ML VIAL ONE (07:35)
[2022-08-06] MEDS ORDERED: Ondansetron PF 4 MG/2 ML Vial ONE (07:35)
[2022-08-06] MEDS ORDERED: NEOSTIGMINE 3 MG/3 ML SYR 3 MG/3 ML SYRINGE ONE (07:35)
[2022-08-06] MEDS ORDERED: Sodium Chloride 0.9% 100 ML ONE (07:48)
[2022-08-06] MEDS ORDERED: CEFAZOLIN 2 GM VIAL ONE (07:48)
[2022-08-06 08:42] LABS: SARS-CoV-2 NAA Rapid Test Not Detected (NotDetected)
[2022-08-06] MEDS ORDERED: Fentanyl 100 MCG/2 ML VIAL ONE ×3 (09:17→10:12)
[2022-08-06] MEDS ORDERED: Promethazine HCl 25 MG/ML VIAL IM PRN ×2 (09:17→09:29)
[2022-08-06] MEDS ORDERED: Ondansetron HCl/PF 4 MG/2 ML Vial IVP PRN (09:17)
[2022-08-06] MEDS ORDERED: Promethazine HCl 25 MG/ML VIAL ONE (09:28)
[2022-08-06] MEDS ORDERED: Morphine 2 MG/ML VIAL SLOW IVP PRN (09:29)
[2022-08-06] MEDS ORDERED: Ondansetron PF 4 MG/2 ML Vial IVP PRN (09:29)
[2022-08-06] MEDS ORDERED: hydrALAZINE 20 MG/ML VIAL SLOW IVP PRN ×2 (09:29→10:50)
[2022-08-06] MEDS ORDERED: Ipratropium/Albuterol 3 ML NEB NEB PRN (09:29)
[2022-08-06] MEDS ORDERED: hydrALAZINE 20 MG/ML VIAL ONE (09:42)
[2022-08-06] MEDS ORDERED: HYDROmorphone 2 MG/ML VIAL ONE (10:21)
[2022-08-06] MEDS ORDERED: HYDROmorphone 2 MG/ML VIAL SLOW IVP PRN (10:52)
[2022-08-06] MEDS ORDERED: Bupivacaine PF 0.5% 30 ML VIAL ONE (11:00)
[2022-08-06] MEDS ORDERED: Ketorolac Tromethamine 30 MG/ML VIAL ONE (11:24)
[2022-08-06] MEDS: Ketorolac Tromethamine 30 MG/ML VIAL IVP SCH ×3 (11:26→22:57)
[2022-08-06] MEDS ORDERED: FLU VACC QS2022-23(65YR UP)/PF 240 MCG/0.7 ML SYRINGE IM ONE (13:00)
[2022-08-06] MEDS: Morphine 4 MG/ML VIAL SLOW IVP PRN ×4 (13:02→22:58)
[2022-08-06] MEDS: Sodium Chloride 0.9% 1,000 ML IV SCH ×3 (14:00→22:59)
[2022-08-06] MEDS: cefOXitin 2 GM in Sodium Chloride 0.9% 100 ML IVPB SCH ×2 (14:58→22:58)
[2022-08-06] MEDS: Famotidine/PF 20 mg/2ml Vial SLOW IVP SCH (20:22)
[2022-08-06] MEDS: Famotidine 20 MG TAB PO SCH (20:23)
[2022-08-07] MEDS: Morphine 4 MG/ML VIAL SLOW IVP PRN ×3 (01:31→07:53)
[2022-08-07] MEDS: Ketorolac Tromethamine 30 MG/ML VIAL IVP SCH ×3 (05:09→17:38)
[2022-08-07 06:06] LABS: #Eosinphils 0.1 thou/uL (0.0-0.7); #Lymphocytes 1.8 thou/uL (1.20-3.40); #Neutrophils 6.5 thou/uL (1.40-6.50); %Basophils 0.1 % (0.0-1.0); %Eosinophils 0.6 % (0.0-10.0); %Lymphocytes 19.1 % (21.0-51.0); %Monocytes 10.5 % (0.0-10.0); %Neutrophils 69.6 % (42.0-75.0); Hemoglobin 11.5 g/dL (14.0-18.0); Mean Corpuscular HGB CONC 33.9 g/dL (32.0-36.0); Mean Corpuscular Hemoglobin 33.5 pg (27.0-31.0); Mean Corpuscular Volume 98.7 fl (78.0-98.0); Mean Platelet Volume 6.3 fL (7.4-10.4); Platelet Count 400 10x3/uL (130-400); RBC Distribution Width 13.5 % (11.5-14.5); Red Blood Cell (RBC) Count 3.42 mill/uL (4.70-6.10); White Blood Cell (WBC) Count 9.4 10x3/uL (4.8-10.8)
[2022-08-07 06:23] LABS: Anion Gap 15 mmol/L (10-20); BUN (Urea Nitrogen) 10 mg/dL (8.4-25.7); Calc. Creatinine Clearance 112 mL/min (70-130); Calcium 7.9 mg/dL (7.8-10.44); Carbon Dioxide 20 mmol/L (23-31); Chloride 103 mmol/L (98-107); Estimated GFR 99; Glucose 83 mg/dL (80-115); Potassium 4.3 mmol/L (3.5-5.1); Sodium 134 mmol/L (136-145)
[2022-08-07] MEDS: Famotidine/PF 20 mg/2ml Vial SLOW IVP SCH ×2 (07:53→21:10)
[2022-08-07] MEDS: Famotidine 20 MG TAB PO SCH ×2 (08:47→21:10)
[2022-08-07] MEDS: Sodium Chloride 0.9% 1,000 ML IV SCH ×2 (09:00→17:42)
[2022-08-07] MEDS ORDERED: HYDROcodone/Acetaminophen 7.5/325 mg Tablet PO PRN (09:30)
[2022-08-07] MEDS: HYDROcodone/Acetaminophen 7.5/325 mg Tablet PO PRN ×3 (11:34→21:09)
[2022-08-08] MEDS: Ketorolac Tromethamine 30 MG/ML VIAL IVP SCH ×4 (00:22→18:52)
[2022-08-08] MEDS: HYDROcodone/Acetaminophen 7.5/325 mg Tablet PO PRN ×3 (04:23→20:51)
[2022-08-08] MEDS: Sodium Chloride 0.9% 1,000 ML IV SCH ×2 (04:24→08:46)
[2022-08-08] MEDS: Famotidine 20 MG TAB PO SCH ×2 (08:46→20:52)
[2022-08-08] MEDS: Hydrochlorothiazide 25 MG TAB PO SCH (08:46)
[2022-08-08] MEDS: Senokot S 8.6-50 MG TAB PO SCH (21:52)
[2022-08-09] MEDS: Ketorolac Tromethamine 30 MG/ML VIAL IVP SCH ×3 (00:12→13:29)
[2022-08-09] MEDS: HYDROcodone/Acetaminophen 7.5/325 mg Tablet PO PRN (04:30)
[2022-08-09 05:34] LABS: Hemoglobin 10.9 g/dL (14.0-18.0); Mean Corpuscular HGB CONC 29.2 g/dL (32.0-36.0); Mean Corpuscular Hemoglobin 28.7 pg (27.0-31.0); Mean Corpuscular Volume 98.2 fl (78.0-98.0); Mean Platelet Volume 6.2 fL (7.4-10.4); Platelet Count 421 10x3/uL (130-400); RBC Distribution Width 13.6 % (11.5-14.5); White Blood Cell (WBC) Count 5.1 10x3/uL (4.8-10.8)
[2022-08-09 05:57] LABS: Anion Gap 15 mmol/L (10-20); BUN (Urea Nitrogen) 5 mg/dL (8.4-25.7); Calc. Creatinine Clearance 123 mL/min (70-130); Calcium 8.2 mg/dL (7.8-10.44); Carbon Dioxide 23 mmol/L (23-31); Chloride 102 mmol/L (98-107); Estimated GFR 101; Glucose 90 mg/dL (80-115); Phosphorus 3.3 mg/dL (2.3-4.7); Potassium 2.7 mmol/L (3.5-5.1); Sodium 137 mmol/L (136-145)
[2022-08-09 06:01] LABS: Magnesium 0.9 mg/dL (1.6-2.6)
[2022-08-09 06:30] LABS: #Eosinphils 0.3 thou/uL (0.0-0.7); #Lymphocytes 1.7 thou/uL (1.20-3.40); #Monocytes 0.7 thou/uL (0.11-0.59); #Neutrophils 2.5 thou/uL (1.40-6.50); %Basophils 0.4 % (0.0-1.0); %Eosinophils 5.7 % (0.0-10.0); %Lymphocytes 33.3 % (21.0-51.0); %Monocytes 12.7 % (0.0-10.0); Hypochromia SLIGHT = 6-15 cells (100X) (0-5/hpf); MDiff Complete? YES; Platelet Morphology Comment Appears Increased; Polychromasia SLIGHT = 2-3 cells (100X) (0-2/hpf)
[2022-08-09] MEDS ORDERED: Magnesium Sulfate In Water 4 GM in Premix Bag 1 BAG IVPB SCH (06:30)
[2022-08-09 07:31] VITALS: TEMP 98
[2022-08-09] MEDS ORDERED: Potassium Phosphate 30 MMOL in Sodium Chloride 0.9% 250 ML 250 ML IVPB SCH (08:00)
[2022-08-09] MEDS ORDERED: Acetaminophen/Codeine 30-300mg Tablet PO PRN ×2 (08:37)
[2022-08-09] MEDS: Famotidine 20 MG TAB PO SCH (08:48)
[2022-08-09] MEDS: Senokot S 8.6-50 MG TAB PO SCH (08:50)
[2022-08-09] MEDS: Hydrochlorothiazide 25 MG TAB PO SCH (08:50)
[2022-08-09] MEDS ORDERED: Magnesium Oxide 400 MG TAB PO SCH (09:00)
[2022-08-09] MEDS ORDERED: Polyethylene Glycol 3350 17 GM Packet PO SCH (09:00)
[2022-08-09 11:08] VITALS: BP 127/74
== END 2022-08-09 15:24 | disposition home or self-care (01) | DRG 330 ==
LOC: SURG A 08-06 05:53 → EDSTATUS 08-06 15:15
PROVIDERS: ADMIT Surgery; ATTEND Surgery
PROC: 0DBB0ZZ Excision of Ileum, Open Approach (ICD-10-PCS; principal; 2022-08-06)
DX: K94.19 Other complications of enterostomy (principal); K55.8 Other vascular disorders of intestine; K56.7 Ileus, unspecified; K56.1 Intussusception; E83.42 Hypomagnesemia; B19.20 Unspecified viral hepatitis C without hepatic coma; F17.210 Nicotine dependence, cigarettes, uncomplicated; I10 Essential (primary) hypertension; Z98.890 Other specified postprocedural states; Z79.899 Other long term (current) drug therapy; Z80.42 Family history of malignant neoplasm of prostate; Z90.49 Acquired absence of other specified parts of digestive tract; Z88.8 Allergy status to other drugs, medicaments and biological substances; Z20.822 Contact with and (suspected) exposure to COVID-19; H40.9 Unspecified glaucoma; Z82.49 Family history of ischemic heart disease and other diseases of the circulatory system
CPT/HCPCS: 36415; 80048; 83735; 84100; 85025; 88307; A4649; J0360; J0694; J1100; J1170; J1650; J1885; J2250; J2270; J2272; J2405; J2550; J2704; J3010; J3475; J3490; J7050; S0020; S0028; U0002

== ENCOUNTER 2022-09-29 12:34 | Outpatient (CLI) | payer MEDICARE | END 2022-09-29 12:35 | disposition home or self-care (01) | LOC: BICCT 12:34 | PROVIDERS: ATTEND Surgery | DX: R14.0 Abdominal distension (gaseous) (principal); R10.9 Unspecified abdominal pain; N28.1 Cyst of kidney, acquired; K76.0 Fatty (change of) liver, not elsewhere classified; K43.9 Ventral hernia without obstruction or gangrene | CPT/HCPCS: 74177; 82565 ==

== ENCOUNTER 2024-04-22 16:06 | Inpatient (IN) | payer MEDICARE ==
[2024-04-22] MEDS ORDERED: Sodium Chloride 0.9% 1,000 ML IV SCH (16:30)
[2024-04-22] MEDS ORDERED: Ipratropium/Albuterol 3 ML NEB NEB PRN (16:30)
[2024-04-22] MEDS ORDERED: Ondansetron PF 4 MG/2 ML Vial IVP PRN (16:30)
[2024-04-22] MEDS: Acetaminophen 325 MG TAB PO SCH (17:47)
[2024-04-22] MEDS: Lactated Ringer's 1,000 ML IV SCH (17:47)
[2024-04-22] MEDS: Potassium Chloride 20 MEQ in Premix 1 BAG IVPB SCH (17:48)
[2024-04-22 18:53] LABS: #Basophils Less than 0.03 10x3/uL (0.0-0.2); %Basophils 0.2 % (0.0-1.0); %Eosinophils 0.3 % (0.0-10.0); %Lymphocytes 17.7 % (21.0-51.0); %Monocytes 6.7 % (0.0-10.0); %Neutrophils 74.9 % (42.0-75.0); Hemoglobin 12.8 g/dL (14.0-18.0); Mean Corpuscular HGB CONC 34.6 g/dL (32.0-36.0); Mean Corpuscular Hemoglobin 34.4 pg (27.0-31.0); Mean Corpuscular Volume 99.5 fL (78.0-98.0); Mean Platelet Volume 9.2 fL (7.4-10.4); Platelet Count 241 10x3/uL (130-400); RBC Distribution Width 13.1 % (11.5-14.5); Red Blood Cell (RBC) Count 3.72 mill/uL (4.70-6.10)
[2024-04-22 19:07] LABS: INR-International Normal Ratio 1.3; PTT 39.3 sec (22.9-36.1); Prothrombin Time 16.7 sec (12.0-14.7)
[2024-04-22 19:12] LABS: Anion Gap 15 mmol/L (10-20); BUN (Urea Nitrogen) 8 mg/dL (8.4-25.7); Calc. Creatinine Clearance 0 mL/min (70-130); Calcium 7.1 mg/dL (7.8-10.44); Carbon Dioxide 20 mmol/L (23-31); Chloride 105 mmol/L (98-107); Estimated GFR 86; Glucose 89 mg/dL (80-115); Magnesium 0.6 mg/dL (1.6-2.6); Phosphorus 2.9 mg/dL (2.3-4.7); Potassium 3.1 mmol/L (3.5-5.1); Sodium 137 mmol/L (136-145)
[2024-04-22 19:23] VITALS: BMI 28.5
[2024-04-22] MEDS ORDERED: Piperacillin/Tazobactam 3.375 GM in Sodium Chloride 0.9% 100 ML IVPB SCH (19:30)
[2024-04-22] MEDS ORDERED: Electrolyte Replacement Protocol 1 EACH FS SCH (19:45)
[2024-04-22] MEDS: Morphine 2 MG/ML VIAL SLOW IVP PRN (19:50)
[2024-04-22] MEDS ORDERED: Potassium Chloride 20 MEQ in Premix 1 BAG IVPB SCH (20:00)
[2024-04-22] MEDS: Famotidine/PF 20 mg/2ml Vial SLOW IVP SCH (20:11)
[2024-04-22] MEDS: Electrolyte Replacement Protocol 1 EACH FS ONE (20:11)
[2024-04-22] MEDS: Magnesium Sulfate In Water 4 GM in Premix 1 BAG IVPB SCH (20:11)
[2024-04-22] MEDS: Piperacillin/Tazobactam 3.375 GM in Sodium Chloride 0.9% 100 ML IVPB SCH (21:43)
[2024-04-23] MEDS ORDERED: Magnesium 2 GM/50 ML(in water) 4 GM in Premix 1 BAG IVPB SCH (07:03)
[2024-04-23] MEDS: Potassium Chloride 20 MEQ in Premix 1 BAG IVPB SCH ×2 (07:45→21:36)
[2024-04-23] MEDS ORDERED: PROPOFOL 20 ML ONE (12:37)
[2024-04-23] MEDS ORDERED: SUCCINYLCHOLINE/SOD CL,ISO/PF 200 MG/10 ML SYRINGE FS ONE (12:38)
[2024-04-23] MEDS ORDERED: Rocuronium Bromide 10 MG/ML (10ML VIAL) ONE (12:38)
[2024-04-23] MEDS ORDERED: Lidocaine 1% PF 5 ML VIAL ONE ×2 (12:38→12:53)
[2024-04-23] MEDS ORDERED: Ondansetron PF 4 MG/2 ML Vial ONE (12:38)
[2024-04-23] MEDS ORDERED: fentaNYL PF 100 MCG/2 ML SYRINGE ONE (12:49)
[2024-04-23] MEDS ORDERED: SUGAMMADEX SODIUM 200 MG/2 ML VIAL ONE (14:07)
[2024-04-23] MEDS ORDERED: fentaNYL 50 mcg/mL 1 mL Vial ONE ×4 (14:19→16:12)
[2024-04-23] MEDS ORDERED: Glucagon 1 MG/ML KIT IM PRN (14:34)
[2024-04-23] MEDS ORDERED: Dextrose 5% in Water 1,000 ML IV PRN (14:34)
[2024-04-23] MEDS ORDERED: Dextrose 50% Abboject 50 ML SYRINGE SLOW IVP PRN (14:34)
[2024-04-23] MEDS ORDERED: Calcium Carbonate 500 MG ChewTAB PO PRN (14:34)
[2024-04-23] MEDS ORDERED: HYDROcodone/Acetaminophen 10/325 mg Tablet PO PRN (14:34)
[2024-04-23] MEDS ORDERED: HYDROmorphone 2 MG/ML VIAL ONE (14:46)
[2024-04-23] MEDS ORDERED: Promethazine HCl 25 MG/ML VIAL IM PRN (16:00)
[2024-04-23] MEDS ORDERED: diphenhydrAMINE 50 MG/ML VIAL IM/IV PRN (16:00)
[2024-04-23] MEDS ORDERED: diphenhydrAMINE 25 MG CAP PO PRN (16:00)
[2024-04-23] MEDS ORDERED: Ondansetron PF 4 MG/2 ML Vial IVP PRN (16:00)
[2024-04-23] MEDS ORDERED: Fentanyl CADD 100 ML IVPB SCH (16:00)
[2024-04-23] MEDS ORDERED: Naloxone HCl 0.4 mg/ml Vial IV PRN (16:00)
[2024-04-23 16:16] LABS: Glucose POC Confirmation 80 mg/dL (83-110)
[2024-04-23 16:21] LABS: Anion Gap 14 mmol/L (10-20); BUN (Urea Nitrogen) 6 mg/dL (8.4-25.7); Calc. Creatinine Clearance 100 mL/min (70-130); Calcium 7.2 mg/dL (7.8-10.44); Carbon Dioxide 21 mmol/L (23-31); Chloride 103 mmol/L (98-107); Estimated GFR 91; Glucose 80 mg/dL (80-115); Potassium 3.3 mmol/L (3.5-5.1); Sodium 135 mmol/L (136-145)
[2024-04-23 17:03] LABS: #Basophils Less than 0.03 10x3/uL (0.0-0.2); %Basophils 0.1 % (0.0-1.0); %Eosinophils 0.4 % (0.0-10.0); %Monocytes 6.2 % (0.0-10.0); Hematocrit 38.8 % (42.0-52.0); Hemoglobin 13.3 g/dL (14.0-18.0); Mean Corpuscular HGB CONC 34.3 g/dL (32.0-36.0); Mean Corpuscular Hemoglobin 34.4 pg (27.0-31.0); Mean Corpuscular Volume 100.3 fL (78.0-98.0); Platelet Count 241 10x3/uL (130-400); RBC Distribution Width 13.1 % (11.5-14.5); Red Blood Cell (RBC) Count 3.87 mill/uL (4.70-6.10)
[2024-04-23] MEDS: D5 1/2 NS w/20 mEq KCL 1,000 ML IV SCH (17:12)
[2024-04-23] MEDS ORDERED: Piperacillin/Tazobactam 3.375 GM in Sodium Chloride 0.9% 100 ML IVPB SCH (18:45)
[2024-04-23 20:08] LABS: Magnesium 1.6 mg/dL (1.6-2.6)
[2024-04-23] MEDS: Famotidine 20 MG TAB PO SCH (20:23)
[2024-04-23] MEDS: Enoxaparin 40 MG (0.4 mL) SYRINGE SC SCH (20:23)
[2024-04-23] MEDS ORDERED: Enoxaparin 30 MG (0.3 mL) SYRINGE SC SCH (21:00)
[2024-04-23] MEDS: Magnesium 2 GM/50 ML(in water) 2 GM in Premix 1 BAG IVPB SCH (21:35)
[2024-04-24 08:44] LABS: #Basophils Less than 0.03 10x3/uL (0.0-0.2); %Eosinophils 0.5 % (0.0-10.0); %Monocytes 8.1 % (0.0-10.0); Hematocrit 38.4 % (42.0-52.0); Hemoglobin 13.1 g/dL (14.0-18.0); Mean Corpuscular HGB CONC 34.1 g/dL (32.0-36.0); Mean Corpuscular Hemoglobin 34.1 pg (27.0-31.0); Mean Platelet Volume 9.3 fL (7.4-10.4); Platelet Count 222 10x3/uL (130-400); RBC Distribution Width 12.7 % (11.5-14.5); Red Blood Cell (RBC) Count 3.84 mill/uL (4.70-6.10)
[2024-04-24 09:12] LABS: Anion Gap 10 mmol/L (10-20); BUN (Urea Nitrogen) 4 mg/dL (8.4-25.7); Calc. Creatinine Clearance 113 mL/min (70-130); Calcium 7.4 mg/dL (7.8-10.44); Carbon Dioxide 25 mmol/L (23-31); Chloride 101 mmol/L (98-107); Estimated GFR 97; Glucose 128 mg/dL (80-115); Potassium 3.4 mmol/L (3.5-5.1); Sodium 133 mmol/L (136-145)
[2024-04-24] MEDS: Potassium Chloride 20 MEQ in Premix 1 BAG IVPB SCH (10:24)
[2024-04-24] MEDS: Piperacillin/Tazobactam 3.375 GM VIAL ONE ×2 (12:08→20:17)
[2024-04-24] MEDS: Ondansetron PF 4 MG/2 ML Vial IVP PRN (20:21)
[2024-04-25] MEDS: hydrALAZINE 20 MG/ML VIAL SLOW IVP PRN (05:06)
[2024-04-25 05:37] LABS: #Basophils Less than 0.03 10x3/uL (0.0-0.2); %Basophils 0.1 % (0.0-1.0); %Eosinophils 1.8 % (0.0-10.0); %Monocytes 9.2 % (0.0-10.0); %Neutrophils 78.4 % (42.0-75.0); Hemoglobin 12.8 g/dL (14.0-18.0); Mean Corpuscular HGB CONC 34.6 g/dL (32.0-36.0); Mean Corpuscular Hemoglobin 34.4 pg (27.0-31.0); Mean Corpuscular Volume 99.5 fL (78.0-98.0); Mean Platelet Volume 9.1 fL (7.4-10.4); Platelet Count 237 10x3/uL (130-400); RBC Distribution Width 12.4 % (11.5-14.5); Red Blood Cell (RBC) Count 3.72 mill/uL (4.70-6.10)
[2024-04-25 05:55] LABS: Anion Gap 11 mmol/L (10-20); BUN (Urea Nitrogen) 4 mg/dL (8.4-25.7); Calc. Creatinine Clearance 112 mL/min (70-130); Carbon Dioxide 23 mmol/L (23-31); Chloride 103 mmol/L (98-107); Estimated GFR 97; Glucose 126 mg/dL (80-115); Phosphorus 0.9 mg/dL (2.3-4.7); Potassium 3.4 mmol/L (3.5-5.1); Sodium 134 mmol/L (136-145)
[2024-04-25] MEDS: Potassium Phosphate 30 MMOL in Sodium Chloride 0.9% 250 ML 250 ML IVPB SCH (07:59)
[2024-04-25] MEDS: K-Phos Neutral 250 MG TAB PO SCH (08:00)
[2024-04-25] MEDS: Magnesium 2 GM/50 ML(in water) 2 GM in Premix 1 BAG IVPB SCH (08:00)
[2024-04-25] MEDS ORDERED: traMADol HCl 50 MG TAB PO PRN (08:48)
[2024-04-25] MEDS ORDERED: HYDROcodone/Acetaminophen 5/325 mg Tablet PO PRN ×2 (08:51→08:52)
[2024-04-25] MEDS ORDERED: Acetaminophen 325 MG TAB PO PRN (11:00)
[2024-04-25] MEDS: Acetaminophen 500 MG TAB PO SCH (12:30)
[2024-04-25] MEDS: Ketorolac Tromethamine 30 MG (1 mL) VIAL IVP SCH ×2 (12:30→17:21)
[2024-04-25] MEDS: Potassium Chloride 30 MEQ in Sodium Chloride 0.9% 1,000 ML IV SCH (13:36)
[2024-04-25] MEDS: FLU (Fluad Triv) TS24-25 (65UP)/MF59C/PF 45 MCG/0.5 ML Syringe IM ONE (21:38)
[2024-04-25] MEDS: traMADol HCl 50 MG TAB PO PRN (21:50)
[2024-04-26 06:06] LABS: Magnesium 2.1 mg/dL (1.6-2.6); Phosphorus 1.8 mg/dL (2.3-4.7)
[2024-04-26] MEDS: Isosorbide Mononitrate 60 MG ER.TAB PO SCH (08:28)
[2024-04-26] MEDS: Amlodipine 5 MG TAB PO SCH (08:29)
[2024-04-26] MEDS: traMADol HCl 50 MG TAB PO PRN (20:31)
[2024-04-27] MEDS ORDERED: Ibuprofen 600 MG TAB PO PRN (11:31)
[2024-04-27] MEDS: Metoprolol Tartrate 25 MG TAB PO SCH (20:33)
[2024-04-27 20:50] VITALS: TEMP 98.1
[2024-04-28 06:01] VITALS: BP 169/99
[2024-04-28 08:45] LABS: Hematocrit 36.3 % (42.0-52.0); Hemoglobin 12.9 g/dL (14.0-18.0); Mean Corpuscular HGB CONC 35.5 g/dL (32.0-36.0); Mean Corpuscular Hemoglobin 33.3 pg (27.0-31.0); Mean Corpuscular Volume 93.8 fL (78.0-98.0); Mean Platelet Volume 8.6 fL (7.4-10.4); Platelet Count 339 10x3/uL (130-400); RBC Distribution Width 12.4 % (11.5-14.5); Red Blood Cell (RBC) Count 3.87 mill/uL (4.70-6.10)
[2024-04-28 09:03] LABS: Anion Gap 17 mmol/L (10-20); BUN (Urea Nitrogen) 6 mg/dL (8.4-25.7); Calc. Creatinine Clearance 125 mL/min (70-130); Carbon Dioxide 20 mmol/L (23-31); Chloride 100 mmol/L (98-107); Estimated GFR 100; Glucose 100 mg/dL (80-115); Potassium 3.4 mmol/L (3.5-5.1); Sodium 134 mmol/L (136-145)
[2024-04-28] MEDS: Amlodipine 10 MG TAB PO SCH (09:53)
[2024-04-28 10:15] LABS: Eosinophils 2 % (0-10); Lymphocytes 17 % (21-51); Monocytes 11 % (0-10); Neutrophil 66 % (42-75); Platelet Adequacy Comment Platelets Normal; Polychromasia SLIGHT = 2-3 cells HPF (0-2); Reactive Lymphocytes 2 % (0-10)
== END 2024-04-28 11:11 | disposition home or self-care (01) | DRG 330 ==
LOC: ERS 16:06 → SURG A 16:32
PROVIDERS: ADMIT Surgery; ATTEND Surgery
PROC: 0DB80ZZ Excision of Small Intestine, Open Approach (ICD-10-PCS; principal; 2024-04-23)
DX: K63.1 Perforation of intestine (nontraumatic) (principal); E87.1 Hypo-osmolality and hyponatremia; K56.7 Ileus, unspecified; I10 Essential (primary) hypertension; E83.42 Hypomagnesemia; E87.6 Hypokalemia; Z90.49 Acquired absence of other specified parts of digestive tract; Z88.5 Allergy status to narcotic agent; Z88.8 Allergy status to other drugs, medicaments and biological substances
CPT/HCPCS: 36415; 36416; 80048; 83735; 84100; 85025; 85610; 85730; 86850; 86900; 86901; 88307; 93005; 93010; 96365; 96375; A4649; J0360; J1650; J1885; J2272; J2405; J2543; J2704; J3010; J3475; J3480; J3490; J7030; J7050; J7120